=== PATIENT | male | born 1965 | race African-American/Black ===

== ENCOUNTER 2017-03-01 13:18 | Emergency (ER) | payer SELFPAY ==
[~2017-03-01 13:18] MED LIST: CLON0.2T PO; LISI-338 PO; OXYC-323 PO; TRIA1TAB2 PO
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
[2017-03-01] MEDS ORDERED: cloNIDine HCL 0.1 MG TABLET PO ONE (15:30)
[2017-03-01] MEDS ORDERED: HYDROCODONE/APAP 5/325MG TABLET. PO ONE (15:30)
[2017-03-01] MEDS ORDERED: TRAM-29 PO (15:31)
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
[2017-03-01 15:39] VITALS: BP 196/131
== END 2017-03-01 15:45 | disposition home or self-care (01) ==
LOC: ER 13:18
DX: S80.02XA Contusion of left knee, initial encounter (principal); S80.01XA Contusion of right knee, initial encounter; I10 Essential (primary) hypertension; V43.52XA Car driver injured in collision with other type car in traffic accident, initial encounter; Y93.I9 Activity, other involving external motion; Y92.410 Unspecified street and highway as the place of occurrence of the external cause; Y99.8 Other external cause status
CPT/HCPCS: 73564; 99284

== ENCOUNTER → 2017-08-10 | Outpatient (CLI) | payer OTHER ==
[~2017-08-10] MED LIST changes: +TRAM-48 PO
--- NOTE | 2017-08-10 10:03 | RAD ---
Indication disability determination. Chronic pain. AP and lateral views of the right knee were obtained. There are sclerotic changes seen involving the femoral condyles as well as the lateral tibial plateau suggesting osteonecrosis. Degenerative changes associated with the knee have progressed relative to an exam 03/01/2017. An acute bony finding is not seen. There may be a component of bony demineralization. IMPRESSION: Degenerative and chronic changes. No acute finding seen
--- NOTE | 2017-08-10 10:05 | RAD ---
Indication chronic pain. Disability determination. AP and lateral views of the lumbar spine were obtained and are compared to an exam 05/10/2013. There are degenerative changes. Degenerative changes are most pronounced at L3-4 where there is disc space narrowing and associated degenerative endplate changes. Degenerative changes have progressed relative to the previous study. Some facet degenerative changes also seen at L3-4, L4-5 and L5-S1. Slight disc space narrowing is seen at L5-S1. Acute bony finding is not apparent. Incidental note is made of substantial degenerative change involving the right hip. IMPRESSION: Degenerative changes involving the lumbar spine which have increased relative to a study 05/10/2013. Advanced degenerative changes associated with the right hip
== END | disposition home or self-care (01) ==
LOC: RAD 09:16
PROVIDERS: ATTEND Surgery
DX: M17.11 Unilateral primary osteoarthritis, right knee (principal); M47.896 Other spondylosis, lumbar region; G89.29 Other chronic pain
CPT/HCPCS: 72100; 73560

== ENCOUNTER 2018-05-05 01:48 | Emergency (ER) | payer OTHER ==
[2018-05-05] MEDS ORDERED: MORPHINE SULFATE 4 MG/ML DISP.SYRIN. (02:19)
[2018-05-05] MEDS: MORPHINE SULFATE 4 MG/ML DISP.SYRIN. IV (02:20)
[2018-05-05 02:23] LABS: HEMATOCRIT 37.6 % (39.0-53.0); HEMOGLOBIN 12.8 g/dL (13.0-17.5); MEAN CORPUSCULAR HEMOGLOBIN 30 pg (25-35); MEAN CORPUSCULAR HGB CONC 34 g/dL (31-37); MEAN CORPUSCULAR VOLUME 88 fL (79-100); PLATELET COUNT 267 x10^3/uL (140-400); RED BLOOD COUNT 4.26 x10^6/uL (4.30-5.70); RED CELL DISTRIBUTION WIDTH 14.4 % (11.5-14.5); WHITE BLOOD COUNT 7.6 x10^3/uL (4.0-11.0)
[2018-05-05 02:32] LABS: ANION GAP 4 (6-14); BLOOD UREA NITROGEN 16 mg/dL (8-26); CALCIUM 7.8 mg/dL (8.5-10.1); CARBON DIOXIDE 27 mmol/L (21-32); CHLORIDE 103 mmol/L (98-107); CREATININE 1.4 mg/dL (0.7-1.3); GFR 63.9; GLUCOSE 95 mg/dL (70-99); POTASSIUM 3.2 mmol/L (3.5-5.1); SODIUM 134 mmol/L (136-145)
[2018-05-05 02:33] LABS: INR 1.1 (0.8-1.1); PARTIAL THROMBOPLASTIN TIME 29 SEC (24-38); PROTHROMBIN TIME PATIENT 13.7 SEC (11.7-14.0)
[2018-05-05 02:54] LABS: TROPONINI < 0.017 ng/mL (0.000-0.055)
[2018-05-05] MEDS ORDERED: MORPHINE SULFATE 4 MG/ML DISP.SYRIN. IV (03:30)
[2018-05-05 10:51] LABS: POC GLUCOSE 108 mg/dL (70-99)
== END 2018-05-05 03:10 | disposition short-term general hospital (02) ==
LOC: ER 03:10
DX: R53.1 Weakness (principal); I10 Essential (primary) hypertension
CPT/HCPCS: 36415; 70450; 80048; 82962; 84484; 85027; 85610; 85730; 93005; 96365; 96375; 99285-25; J2270; J7050

== ENCOUNTER → 2020-08-05 | Outpatient (CLI) | payer OTHER ==
[2018-05-05 03:10] VITALS: BP 176/104
[~2020-08-05] MED LIST changes: +BACL10TA PO; +BREO ELLIPTA 21 EACH IH; +CYCL10TA2 PO; +GABA600T7 PO; +HYDR-2868 PO; +LISI1TAB23 PO; -OXYC-323 PO; +OXYC1TAB15 PO; +VENTOLIN HFA18 GM INH
[2020-08-05 09:39] LABS: BASO % 1 % (0-3); EOS # 0.2 x10^3/uL (0.0-0.7); EOS % 2 % (0-3); HEMATOCRIT 43.5 % (39.0-53.0); HEMOGLOBIN 14.8 g/dL (13.0-17.5); LYMPH # 1.6 x10^3/uL (1.0-4.8); LYMPH % 23 % (24-48); MEAN CORPUSCULAR HEMOGLOBIN 31 pg (25-35); MEAN CORPUSCULAR HGB CONC 34 g/dL (31-37); MEAN CORPUSCULAR VOLUME 90 fL (79-100); MONO # 0.6 x10^3/uL (0.0-1.1); MONO % 9 % (0-9); NEUT # 4.7 x10^3/uL (1.8-7.7); NEUT % 66 % (31-73); PLATELET COUNT 334 x10^3/uL (140-400); RED BLOOD COUNT 4.85 x10^6/uL (4.30-5.70); RED CELL DISTRIBUTION WIDTH 16.5 % (11.5-14.5); WHITE BLOOD COUNT 7.1 x10^3/uL (4.0-11.0)
[2020-08-05 09:51] LABS: PROTHROMBIN TIME PATIENT 12.8 SEC (11.7-14.0)
[2020-08-05 09:57] LABS: ALBUMIN 3.4 g/dL (3.4-5.0); C-REACTIVE PROTEIN 1.8 mg/L (0-3.3); CALCIUM 8.7 mg/dL (8.5-10.1); CREATININE 1.2 mg/dL (0.7-1.3); GFR 75.8
--- NOTE | 2020-08-05 12:54 | EKG ---
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
--- NOTE | 2020-08-05 15:35 | RAD ---
EXAM: CHEST PA LATERAL 08/05/2020 9:07 AM CLINICAL INDICATION: Hyperlipidemia, joint rehabilitation COMPARISON: None TECHNIQUE: PA and lateral views of the chest FINDINGS: The heart and mediastinum are normal. Lungs are well-expanded and clear. No consolidation, pleural effusion, or pneumothorax. Pulmonary vascularity is normal. Mild thoracic degenerative joint disease. IMPRESSION: No acute cardiopulmonary abnormality. Electronically signed by: Myra Hamm MD (08/05/2020 3:32 PM) [id number]
[2020-08-06 01:08] LABS: HEMOGLOBIN A1C 5.3 % (4.8-5.6)
== END ==
LOC: SURGPAT 12:50
PROVIDERS: ATTEND Orthopaedic Surgery
DX: Z01.812 Encounter for preprocedural laboratory examination (principal); M17.12 Unilateral primary osteoarthritis, left knee; M47.814 Spondylosis without myelopathy or radiculopathy, thoracic region; Z96.612 Presence of left artificial shoulder joint; Z20.828 Contact with and (suspected) exposure to other viral communicable diseases
CPT/HCPCS: 36415; 71046; 80048; 82040; 82306; 83036; 85025; 85610; 85730; 86140; 87641; 93005

== ENCOUNTER → 2020-08-16 | Outpatient (CLI) | payer OTHER ==
[2018-05-05 03:10] VITALS: BP 176/104
== END ==
LOC: LAB 13:16
PROVIDERS: ATTEND Orthopaedic Surgery
DX: Z01.812 Encounter for preprocedural laboratory examination (principal); Z20.828 Contact with and (suspected) exposure to other viral communicable diseases
CPT/HCPCS: U0003-CS

== ENCOUNTER → 2022-03-16 | Outpatient (CLI) | payer OTHER ==
[2020-08-23 11:58] VITALS: BP 130/95
[~2022-03-16] MED LIST changes: +ASPI325T11 PO; +CYCL10TA19 PO; -CYCL10TA2 PO; -LISI-338 PO; -LISI1TAB23 PO; +LISI1TAB35 PO; +LISI5TAB15 PO
--- NOTE | 2022-03-17 07:47 | RAD ---
XR BONE LENGTH History: Right knee arthritis. Comparison: 03/03/2022 Technique: Standing AP radiographs of the right lower extremity from the hip to the ankle Findings: No acute fractures or dislocations are identified. There are advanced degenerative changes of the rig ht hip with near complete femoral acetabular joint space loss. Advanced degenerative changes of the r ight knee with complete loss of the medial tibiofemoral joint space, subchondral sclerosis and cystic change and large marginal osteophytes. Subchondral lucency in the medial talar dome measuring approx imately 0.9 x 0.6 cm concerning for osteochondral lesion. Soft tissues are unremarkable. There are fiducial markers overlying the lateral skin. Impression: 1. No acute osseous abnormality. Severe degenerative changes of the right hip and knee. 2. Medial talar dome osteochondral lesion. Electronically signed by: Harpreet Collins MD (03/16/2022 2:30 PM) [id number]
--- NOTE | 2022-03-17 07:48 | RAD ---
MR of the right knee - [employer]/Visionaire protocol History: Reason: PRIMARY OSTEOARTHRITIS OF THE RIGHT KNEE Technique: Images are obtained in accordance with the standard [employer]/Visionaire protocol. 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 Severe right knee joint osteoarthritis with medial and lateral compartment joint space effacement with subc hondral cystic change and chondral effacement. Bulky tricompartmental osteophytes. Medial and lateral meniscal degeneration/maceration. ACL is not well seen. PCL is intact. Electronically signed by: Nick Unger MD (03/16/2022 3:14 PM) [id number]
== END ==
LOC: RAD 08:03 → EDSTATUS 08:30
PROVIDERS: ATTEND Orthopaedic Surgery
DX: M17.11 Unilateral primary osteoarthritis, right knee (principal); M25.761 Osteophyte, right knee; M23.301 Other meniscus derangements, unspecified lateral meniscus, left knee; M16.11 Unilateral primary osteoarthritis, right hip; M89.9 Disorder of bone, unspecified
CPT/HCPCS: 73721; 77073